=== PATIENT | male | born 1985 | race Caucasian/White ===

== ENCOUNTER 2021-12-31 11:01 | Emergency (ER) | payer SELFPAY ==
[2021-12-31] VITALS (24 sets, daily range): BP systolic 105–121; BP diastolic 75–99; PULSE 60–85; RESP 13–20; TEMP 36.4–36.8; O2SAT 91–100
--- NOTE | ~2021-12-31 | XR_ITS ---
EXAMINATION: XR chest 2V DATE: 12/31/2021 11:48 INDICATION: Chest pain TECHNIQUE: AP and lateral views of the chest are obtained. COMPARISON: None available FINDINGS: The lungs are free of acute opacities. There is no pleural effusion or pneumothorax. The ca rdiomediastinal silhouette is normal. The visualized bones and soft tissues are unremarkable. IMPRESSION: 1. No acute cardiopulmonary abnormality. Reviewed, dictated and finalized at location A.
--- NOTE | 2021-12-31 11:03 | ECG_ITS ---
Measurements Intervals [place] Rate: 77 P: 65 IN: 134 QRS: 59 QRSD: 98 T: 64 QT: 357 QTc: 406 Interpretive Statements SINUS RHYTHM NO PREVIOUS ECG AVAILABLE FOR COMPARISON Electronically Signed On 12-31-2021 12:06:33 CDT by Simon Carolina M.D.
[2021-12-31 11:20] LABS: Basophils Percent Auto 0.1 % (0.2-1.2); Eosinophils Absolute Auto 0.1 K/mm3 (0-0.3); Eosinophils Percent Auto 1.4 % (0-4.4); Hematocrit 45.3 % (42.0-52.0); Hemoglobin 15.3 g/dL (14.0-18.0); Immature Granulocyte Absolute 0.02 K/mm3 (0.00-0.031); Immature Granulocyte Percent A 0.3 % (0-0.5); Lymphocytes Absolute Auto 1.96 K/mm3 (0.9-3.2); Lymphocytes Percent Auto 26.9 % (18.3-44.2); Mean Corpuscular HGB Conc 33.8 g/dl (32-36); Mean Corpuscular Hemoglobin 29.5 pg (26-34); Mean Corpuscular Volume 87.3 fl (80-100); Mean Platelet Volume 10.2 fl (7.4-10.4); Monocytes Absolute Auto 0.5 K/mm3 (0.1-0.6); Monocytes Percent Auto 6.5 % (2.6-8.5); Neutrophils Absolute Auto 4.7 K/mm3 (1.3-6.7); Neutrophils Percent Auto 64.8 % (45.5-73.1); Platelet Count Result 229 k/mm3 (150-375); Red Blood Count 5.19 M/mm3 (4.6-6.20); White Blood Count 7.3 K/mm3 (4.5-10.0)
[2021-12-31 11:34] LABS: Partial Thromboplastin Time 26.6 SECONDS (22.3-36.8)
[2021-12-31 11:42] LABS: Alanine Aminotransferase 20 U/L (6-50); Albumin Level 4.5 g/dL (3.5-5.1); Alkaline Phosphatase 90 U/L (38-126); Anion Gap 7 mmol/L (8-16); Aspartate Amino Transferase 25 U/L (17-59); Bilirubin,Total 0.4 mg/dL (0.2-1.3); Blood Urea Nitrogen 10 mg/dL (9-20); Carbon Dioxide 26 mmol/L (22-30); Chloride 107 mmol/L (98-107); Estimated CRCL calculation 102 ml/min; Estimated Glomerular Filt Rate > 60; Glucose 96 mg/dL (65-110); Lipase 92 U/L (23-300); Potassium 4.1 mmol/L (3.4-5.0); Sodium 140 mmol/L (137-145)
[2021-12-31 11:51] LABS: Troponin I < 0.012 ng/mL (0.000-0.034)
--- NOTE | 2021-12-31 11:56 | ED.CHESTPAIN ---
HPI - Chest Pain General Chief Complaint: Chest Pain Stated Complaint: chest pain Time Seen by Provider: 12/31/21 11:18 History of Present Illness HPI narrative: 36-year-old male presents the emergency room for evaluation of left anterior chest pain that radiates into his left arm. Patient states the pain woke him up this morning, describes the pain as a pressure, and has no alleviating or aggravating factors. Patient denies any recent upper respiratory infection or cough. Patient also complaining of a headache, she normally takes Imitrex for as abortive drug. Patient states that Imitrex did not work. Headache is sensitive to light and noise, and that he is nauseated. Denies dizziness or lightheadedness. Head injury.. Related Data Allergies Allergy/AdvReac Type Severity Reaction Status Date / Time dextromethorphan Allergy Mild Hives / Verified 12/31/21 12:24 Red Face guaifenesin Allergy Mild Hives / Verified 12/31/21 12:24 Red Face phenylephrine Allergy Mild Hives / Verified 12/31/21 12:24 Red Face pseudoephedrine Allergy Mild Hives / Verified 12/31/21 12:24 Red Face Penicillins Allergy Unknown HIVES Unverified 12/31/21 12:24 MARIGOLD PARKER Allergy Unknown HIVES Uncoded 12/31/21 12:24 Review of Systems Review of Systems: CONSTITUTIONAL: Denies fever, chills, or sweats. EYES: Denies visual changes, redness, or discharge. ENT: Denies rhinorrhea, congestion, sore throat, or otalgia. CARDIOVASCULAR: Reports chest pain RESPIRATORY: Denies cough or dyspnea. GASTROINTESTINAL: Denies abdominal pain, nausea, vomiting, or diarrhea. GENITOURINARY: Denies dysuria or hematuria. SKIN: Denies rash or itching. MUSCULOSKELETAL: Denies back pain, joint pain, or myalgia. NEUROLOGIC: Reports headache PSYCHIATRIC: Denies anxiety or depression. PMFSH Family History Family History Mother Hypertension Social History Social History Smoking status: Heavy tobacco smoker Alcohol intake: current Exam Narrative: GENERAL: Well-appearing, well-nourished, and in no acute distress. HEAD: Normocephalic, atraumatic. EYES: PERRLA and EOMI. CHEST: Clear to auscultation. No respiratory distress. No wheezes rales or rhonchi HEART: Regular rate and rhythm. No murmur heard. Normal peripheral pulses. EXTREMITIES: Normal range of motion. No edema. SKIN: Warm, dry, no rash. NEURO: No focal deficits. Alert and oriented x3. Cranial nerves II through XII are intact, no unilateral deficits, cerebellar exam within normal limits, strength is 5/5 in lower extremities. PSYCH: Normal mood and affect. Course Vital Signs Vital signs: Vital Signs Temperature 36.8 C 12/31/21 11:04 Pulse Rate 85 12/31/21 11:04 Respiratory Rate 20 12/31/21 11:04 Blood Pressure 116/81 12/31/21 11:04 Pulse Oximetry 100 12/31/21 11:04 Oxygen Delivery Room Air 12/31/21 11:04 Temperature 36.8 C 12/31/21 11:04 Pulse Rate 85 12/31/21 11:04 Respiratory Rate 20 12/31/21 11:04 Blood Pressure 116/81 12/31/21 11:04 Pulse Oximetry 100 12/31/21 11:04 Oxygen Delivery Room Air 12/31/21 11:04 MDM - Chest Pain MDM Narrative Medical decision making narrative: 36-year-old male presented the emergency room with multiple complaints. Patient was reporting chest pain, no evidence of volume overload. EKG showed normal sinus rhythm with no evidence of active ischemia. Troponin was negative, so doubtful for STEMI or NSTEMI. Presentation is not consistent with acute PE, D-dimer was negative and his well score was 0. Chest x-ray showed no acute cardiopulmonary process. Heart score of 0. Patient also complained of a headache. Headache is most consistent with benign headache typical of his migraines. Neurological exam was without evidence of any meningismus, AMS or acute focal neurological findings. Pain was controlled w
[2021-12-31] MEDS: KETOROLAC 30 MG/ML VIAL (*BKC) IV PUSH (12:22)
[2021-12-31] MEDS: ONDANSETRON INJ 4 MG/2 ML VIAL IV PUSH (12:22)
[2021-12-31] MEDS: methylPREDNISolone SOD SUCC 125 MG VIAL IV PUSH (12:23)
[2021-12-31] MEDS: SODIUM CHLORIDE 0.9% IV 1,000 ML 999 ML IV CONT (12:23)
[2021-12-31 13:09] LABS: D Dimer < 0.27 ug/mL (<0.48)
== END 2021-12-31 14:06 | disposition home or self-care (01) ==
PROVIDERS: Family Medicine; Emergency Provider Nurse Practitioner Family
DX: R07.89 Other chest pain (principal); R51.9 Headache, unspecified; R11.0 Nausea; F17.200 Nicotine dependence, unspecified, uncomplicated
CPT/HCPCS: 36415; 71046; 80053; 83690; 84484; 85025; 85380; 85610; 85730; 93005; 96361; 96374; 96375; 99284; J1885; J2405; J2930; J7030

== ENCOUNTER 2024-01-01 08:47 | Outpatient (CLI) | payer BC, SELFPAY ==
[2024-01-01 18:54] LABS: Basophils Percent Auto 0.5 % (0.2-1.2); Eosinophils Absolute Auto 0.2 K/mm3 (0-0.3); Eosinophils Percent Auto 3.3 % (0-4.4); Hematocrit 46.9 % (42.0-52.0); Hemoglobin 15.6 g/dL (14.0-18.0); Immature Granulocyte Absolute 0.01 K/mm3 (0.00-0.031); Immature Granulocyte Percent A 0.2 % (0-0.5); Lymphocytes Absolute Auto 1.96 K/mm3 (0.9-3.2); Lymphocytes Percent Auto 30.3 % (18.3-44.2); Mean Corpuscular HGB Conc 33.3 g/dl (32-36); Mean Corpuscular Hemoglobin 29.2 pg (26-34); Mean Corpuscular Volume 87.8 fl (80-100); Mean Platelet Volume 10.8 fl (7.4-10.4); Monocytes Absolute Auto 0.6 K/mm3 (0.1-0.6); Monocytes Percent Auto 8.5 % (2.6-8.5); Neutrophils Absolute Auto 3.7 K/mm3 (1.3-6.7); Neutrophils Percent Auto 57.2 % (45.5-73.1); Platelet Count Result 265 k/mm3 (150-375); Red Blood Count 5.34 M/mm3 (4.6-6.20); Red Cell Distribution Width 12.5 % (11.5-14.5); White Blood Count 6.5 K/mm3 (4.5-10.0)
[2024-01-01 19:04] LABS: Alanine Aminotransferase 27 U/L (6-50); Albumin Level 4.9 g/dL (3.5-5.1); Alkaline Phosphatase 90 U/L (38-126); Anion Gap 9 mmol/L (4-12); Aspartate Amino Transferase 38 U/L (17-59); Bilirubin,Total 0.4 mg/dL (0.2-1.3); Blood Urea Nitrogen 15 mg/dL (9-20); Calcium 9.4 mg/dL (8.4-10.2); Carbon Dioxide 28 mmol/L (22-30); Chloride 105 mmol/L (98-107); Cholesterol 176 mg/dL (0-200); Estimated Glomerular Filt Rate > 60; Glucose 85 mg/dL (65-110); HDL Direct 36 mg/dL; Potassium 4.3 mmol/L (3.4-5.0); Sodium 142 mmol/L (137-145); Triglycerides 129 mg/dL (<150)
[2024-01-01 19:14] LABS: LDL Cholesterol Direct 112 mg/dL
[2024-01-01 19:20] LABS: Vitamin D 25 Hydroxy 53.9 ng/mL
[2024-01-01 20:06] LABS: Hemoglobin A1C 4.9 % (<5.7)
[2024-01-05 08:14] LABS: Testosterone Total 462 ng/dL (250-1100)
== END 2024-01-01 08:48 | disposition home or self-care (01) ==
LOC: ANHGOSHLAB 08:48
PROVIDERS: PCP Emergency Medicine; Visit Provider Emergency Medicine
DX: F41.9 Anxiety disorder, unspecified (principal); F32.A Depression, unspecified; R53.83 Other fatigue; Z13.1 Encounter for screening for diabetes mellitus; Z13.220 Encounter for screening for lipoid disorders
CPT/HCPCS: 36415; 80053; 80061; 82306; 82607; 83036; 84403; 84443; 85025

== ENCOUNTER 2024-06-28 01:29 | Day surgery (SDC) | payer BC, SELFPAY ==
[2024-06-20 12:04] VITALS: BMI 24.4
[2024-06-28 07:14] VITALS: BP 104/69; PULSE 80; TEMP 36.1; O2SAT 99
[2024-06-28] MEDS: LACTATED RINGERS 1,000 ML 150 ML IV CONT (07:25)
--- NOTE | 2024-06-28 07:39 | P.PNAN_ITS ---
Anes - Initial Pre Proc Eval Procedure: Operation Date: 06/28/24 08:30 Proposed Procedures p Esophagogastroduodenoscopy - Keenan Hutchins MD Date/Time: 06/28/24 07:39 Surgeon: Keenan Hutchins MD Pre Op Diagnosis: GERD Patient Data Age: 38 Gender: M Height: 1.78 m Weight: 72 kg Last Vital Signs Temp 36.1 C L 06/28/24 07:14 Pulse 80 06/28/24 07:14 BP 104/69 06/28/24 07:14 Pulse Ox 99 06/28/24 07:14 O2 Del Method Room Air 06/28/24 07:14 Allergies Allergy/AdvReac Type Severity Reaction Status Date / Time dextromethorphan Allergy Mild Hives / Verified 06/28/24 07:13 Red Face guaifenesin Allergy Mild Hives / Verified 06/28/24 07:13 Red Face phenylephrine Allergy Mild Hives / Verified 06/28/24 07:13 Red Face pseudoephedrine Allergy Mild Hives / Verified 06/28/24 07:13 Red Face MARIGOLD PARKER Allergy Unknown HIVES Uncoded 06/28/24 07:13 Home Medications ?Medication ?Instructions ?Recorded ?Confirmed ?Type calcium carbonate (Tums Extra 300 mg PO BID PRN Heartburn 06/15/24 06/20/24 History Strength Smoothies) pantoprazole 40 mg tablet,delayed 40 mg PO BID #180 tabs 06/15/24 06/28/24 Rx release sucralfate 1 gram tablet 1 g PO QID #120 tabs 06/15/24 06/28/24 Rx Patient hx anesthesia problems: none Family hx anesthesia problems: none Results Review: All pre-operative results and documents have been reviewed as part of the pre- operative evaluation. [facility] Past Medical History Medical History (Updated 06/28/24 @ 07:39 by Lalo Zimmer MD) Acid reflux Surgical History Surgical History (Updated 06/28/24 @ 07:40 by Lalo Zimmer MD) H/O cervical spine surgery Family History Family History Mother Hypertension Social History Social History Smoking status: Current every day smoker Tobacco type: e-cigarettes/vaping Alcohol intake: current Substance use type: does not use Living arrangements: with family Spiritual care concerns: No Anes - Eval Final PreProcedure Day of Procedure 06/28/24 07:39 Patient weight: normal Heart: regular rate and rhythm Lungs: clear to auscultation Airway: Mallampati scale class II Neurological: alert and oriented Last oral intake: >/= 8 hours ASA classification: II Emergent: no Anesthetic plan: proceed Anesthesia type and monitoring: general GIVS and standard monitoring Results Review: All pre-operative results and documents have been reviewed as part of the pre- operative evaluation. Informed Consent: The patient's anesthetic plan and its attendant risks and benefits were discussed with the patient/family/POA. Questions were solicited and answers provided to the satisfaction of the patient/family/POA.
--- NOTE | 2024-06-28 08:21 | PM.IMHP ---
H&P: HPI History of Present Illness Date/Time: 06/28/24 08:21 Chief Complaint: Heartburn- coffee-ground emesis. Narrative: This patient has been experiencing daily heartburn for the past 8 months, despite multiple medications received including [id number]-[id number]-[id number] meds and even omeprazole. About 2 weeks ago, he has various an episode of coffee-ground emesis. He is now referred for EGD. Review of Systems Review of Systems: All systems reviewed & are unremarkable except as noted in HPI and below PMFSH Past Medical History Medical History (Updated 06/28/24 @ 08:23 by Keenan Hutchins MD) Acid reflux Surgical History Surgical History (Updated 06/28/24 @ 07:40 by Lalo Zimmer MD) H/O cervical spine surgery Family History Family History Mother Hypertension Social History Social History Smoking status: Current every day smoker Tobacco type: e-cigarettes/vaping Alcohol intake: current Substance use type: does not use Living arrangements: with family Spiritual care concerns: No Meds Home Medications and Allergies Home Medications ?Medication ?Instructions ?Recorded ?Confirmed ?Type calcium carbonate (Tums Extra 300 mg PO BID PRN Heartburn 06/15/24 06/20/24 History Strength Smoothies) pantoprazole 40 mg tablet,delayed 40 mg PO BID #180 tabs 06/15/24 06/28/24 Rx release sucralfate 1 gram tablet 1 g PO QID #120 tabs 06/15/24 06/28/24 Rx Allergies Allergy/AdvReac Type Severity Reaction Status Date / Time dextromethorphan Allergy Mild Hives / Verified 06/28/24 07:13 Red Face guaifenesin Allergy Mild Hives / Verified 06/28/24 07:13 Red Face phenylephrine Allergy Mild Hives / Verified 06/28/24 07:13 Red Face pseudoephedrine Allergy Mild Hives / Verified 06/28/24 07:13 Red Face MARIGOLD PARKER Allergy Unknown HIVES Uncoded 06/28/24 07:13 Vital Signs Vital Signs - 24 hr 06/28/24 07:14 Temperature 97 F L Pulse Rate 80 Blood Pressure 104/69 Pulse Oximetry 99 Oxygen Delivery Room Air Exam Const: General: cooperative and healthy appearing Resp: Effort & Inspection: normal respiratory effort and able to speak in complete sentences Auscultation: clear to auscultation bilaterally Cardio: Rate: regular rate Rhythm: regular rhythm GI: Inspection: normal to inspection GI Palp: No No hepatosplenomegaly present Auscultation: normal bowel sounds Rectal Exam: deferred Skin: General skin exam: normal color Psych: Appearance: grossly normal Mental Status: mental status grossly normal Assessment and Plan Assessment and plan (1) Acid reflux: Code(s): K21.9 - Gastro-esophageal reflux disease without esophagitis Status: Acute Assessment and Plan: Differential diagnosis includes GERD, hypersensitive esophagus or reflux hypersensitivity. In addition, due to the history of hematemesis, peptic ulcer disease, erosive gastritis or even esophagitis will be considered. The patient is deemed a good candidate for the procedure. Consent signed. Will proceed.
[2024-06-28] MEDS: BENZOCAINE (*SP) 60 ML SPRAY CAN (HURRICAINE) 1 SPRAY MUCOUS MEM (08:39)
[2024-06-28 08:52] VITALS: BP 96/64; PULSE 79; RESP 21; O2SAT 96
[2024-06-28 09:02] VITALS: BP 90/55; PULSE 78; RESP 21; O2SAT 100
[2024-06-28 09:12] VITALS: BP 95/57; PULSE 74; RESP 21; O2SAT 99
[2024-06-28 09:15] VITALS: BP 98/72
== END 2024-06-28 09:31 | disposition home or self-care (01) ==
PROVIDERS: PCP Nurse Practitioner Family; Visit Provider Internal Medicine Gastroenterology
PROC: 0DJ08ZZ Inspection of Upper Intestinal Tract, Via Natural or Artificial Opening Endoscopic (ICD-10-PCS; CPT 43235; principal; 2024-06-28 08:30)
DX: K29.30 Chronic superficial gastritis without bleeding (principal); K21.9 Gastro-esophageal reflux disease without esophagitis; F17.290 Nicotine dependence, other tobacco product, uncomplicated
CPT/HCPCS: 43239; 88305; J2003; J2704; J7120